=== PATIENT | female | born 1995 | race Hispanic/Latino ===

== ENCOUNTER 2023-03-11 02:10 | Emergency (ER) | payer SELFPAY ==
[2023-03-11] MEDS ORDERED: Acetaminophen 500 MG TAB ONE (03:00)
[2023-03-11] MEDS ORDERED: Ondansetron ODT 4 MG TAB ONE (06:46)
== END 2023-03-11 06:48 | disposition home or self-care (01) ==
LOC: ERS 02:10
DX: S00.03XA Contusion of scalp, initial encounter (principal); S00.01XA Abrasion of scalp, initial encounter; S40.812A Abrasion of left upper arm, initial encounter; S40.811A Abrasion of right upper arm, initial encounter; S00.511A Abrasion of lip, initial encounter; T22.331A Burn of third degree of right upper arm, initial encounter; T22.332A Burn of third degree of left upper arm, initial encounter; Y04.2XXA Assault by strike against or bumped into by another person, initial encounter
CPT/HCPCS: 70450; Q0162